=== PATIENT | female | born 1975 | race Hispanic/Latino ===

== ENCOUNTER 2017-08-15 15:31 | Outpatient (CLI) | payer BC | END 2017-08-15 15:32 | disposition home or self-care (01) | LOC: BICRAD 15:31 | PROVIDERS: ATTEND Chiropractor | DX: M79.671 Pain in right foot (principal) ==

== ENCOUNTER 2017-11-20 07:47 | Outpatient (CLI) | payer BC | END 2017-11-20 07:48 | disposition home or self-care (01) | LOC: BICULT 07:47 | PROVIDERS: ATTEND Family Medicine | DX: R10.11 Right upper quadrant pain (principal); R10.13 Epigastric pain; R93.5 Abnormal findings on diagnostic imaging of other abdominal regions, including retroperitoneum; Z92.89 Personal history of other medical treatment | CPT/HCPCS: 76700 ==

== ENCOUNTER 2022-03-06 12:17 | Outpatient (CLI) | payer BC | END 2022-03-06 12:18 | disposition home or self-care (01) | LOC: BICMAMMO 12:17 | PROVIDERS: ATTEND Obstetrics & Gynecology | DX: N64.4 Mastodynia (principal) | CPT/HCPCS: 77063; 77067 ==